=== PATIENT | male | born 1980 | race Caucasian/White ===

== ENCOUNTER → 2017-11-23 | Outpatient (CLI) | payer OTHER | LOC: M SMT 15:18 | DX: R06.00 Dyspnea, unspecified (principal) ==

== ENCOUNTER → 2017-12-13 | Outpatient (CLI) | payer OTHER ==
[~2017-12-13] MED LIST: METHACHOLINE KIT (J7674) INH
== END ==
LOC: M CARPUL 12:24
DX: R06.00 Dyspnea, unspecified (principal)
CPT/HCPCS: J7674

== ENCOUNTER → 2018-09-13 | Outpatient (CLI) | payer OTHER | LOC: M RAD 06:57 | DX: R91.8 Other nonspecific abnormal finding of lung field (principal); R04.2 Hemoptysis; Z77.098 Contact with and (suspected) exposure to other hazardous, chiefly nonmedicinal, chemicals | CPT/HCPCS: 71250 ==